=== PATIENT | female | born 1985 | race Caucasian/White ===

== ENCOUNTER 2016-12-22 17:21 | Emergency (ER) | payer MEDICAID ==
[~2016-12-22] VITALS: Ht 154.9 cm; Wt 45.5 kg
[~2016-12-22 17:21] MED LIST: ALPR.5 PO; IBUP800T23 PO; MULT-120 PO
[2016-12-22 17:25] VITALS: BP 104/70; PULSE 87; RESP 16; TEMP 98.8; O2SAT 98
[2016-12-22] MEDS ORDERED: ALPR.5 PO (17:38)
[2016-12-22] MEDS ORDERED: ONDANSETRON ODT 4 MG TAB PO ONE (18:00)
[2016-12-22] MEDS ORDERED: LOPERAMIDE HCL 2 MG CAP PO ONE (18:00)
[2016-12-22] MEDS ORDERED: LOPE2TAB3 PO (18:32)
[2016-12-22] MEDS ORDERED: ZOFR4TAB3 SL (18:32)
--- NOTE | 2016-12-22 18:32 | PD ---
HPI Chief Complaint: GI Complaint Time Seen by Provider: 17:34 Travel History International Travel<30 days: No Contact w/Intl Traveler<30days: No Traveled to known affect area: No History of Present Illness HPI 31-year-old woman presents emergent department complaining of nausea vomiting diarrhea starting last night. She had copious vomiting, food like emesis, no blood, overnight associated with copious watery diarrhea. Last had vomiting this morning about 6:30. She felt nauseous and wiped out throughout the day and feels dehydrated. She had one more episode of diarrhea this afternoon about 4. She came in today she still feeling poorly. No abdominal pain. No fevers or chills. No other complaints. History Past Medical History Medical History: Denies Significant Hx Tetanus Vaccination: < 5 Years Influenza Vaccination: No LMP: "NOW" : 4 Para: 2 Social History Alcohol Use: No Tobacco Use: Yes (1 PPD) Allergies-Medications (Allergen,Severity, Reaction): Coded Allergies: Lidocaine (Verified Allergy, Severe, 12/22/16) Penicillin (Verified Allergy, Severe, Anaphylaxis, 12/22/16) Reported Meds & Prescriptions Reported Meds & Active Scripts Active Reported Xanax (Alprazolam) 0.5 Mg Tab 0.5 Mg PO HS PRN Review of Systems Except as stated in HPI: all other systems reviewed are Neg Physical Exam Narrative GENERAL: Well-appearing 31-year-old woman, no acute distress. SKIN: Warm and dry. HEAD: Atraumatic. Normocephalic. EYES: Pupils equal and round. No scleral icterus. No injection or drainage. ENT: No nasal bleeding or discharge. Mucous membranes pink and moist. NECK: Trachea midline. No JVD. CARDIOVASCULAR: Regular rate and rhythm. No murmur appreciated. RESPIRATORY: No accessory muscle use. Clear to auscultation. Breath sounds equal bilaterally. GASTROINTESTINAL: Abdomen soft, non-tender, nondistended. Hepatic and splenic margins not palpable. MUSCULOSKELETAL: No obvious deformities. No clubbing. No cyanosis. No edema. NEUROLOGICAL: Awake and alert. No obvious cranial nerve deficits. Motor grossly within normal limits. Normal speech. PSYCHIATRIC: Appropriate mood and affect; insight and judgment normal. Data Data Last Documented VS Vital Signs Date Time Temp Pulse Resp B/P Pulse Ox O2 Delivery O2 Flow Rate FiO2 12/22/16 17:25 98.8 87 16 104/70 98 Orders Loperamide (Imodium) (12/22/16 18:00) Ondansetron Odt (Zofran Odt) (12/22/16 18:00) [facility] Medical Decision Making Medical Screen Exam Complete: Yes Emergency Medical Condition: Yes Differential Diagnosis Gastroenteritis, appendicitis, cystitis, enteritis, other Narrative Course Medical decision making INITIAL: 31-year-old woman presents to the emergency department with nausea vomiting copious watery diarrhea. Looks well. No belly pain. Benign abdominal exam. Recommend supportive treatment. Diagnosis Primary Impression: Acute gastroenteritis Additional Instructions: Follow-up with your primary doctor for not completely well in 3-4 days. Return to the emergency department for any new or worsening symptoms. Take Zofran if needed for nausea or vomiting, loperamide as needed for diarrhea. Med/Other Pt SpecificInfo: Prescription(s) given Scripts Loperamide 2 Mg Tab2 Mg PO DIRECTED PRN (DIARRHEA) #8 TAB One tablet after each loose stool. Not to exceed 8 tablets per day. Prov:Osito Aguilera MD 12/22/16 Ondansetron Odt (Zofran Odt)4 Mg Tab4 Mg SL Q8HR PRN (Nausea/Vomiting) #15 TAB May substitute non-ODT form. Prov:Osito Aguilera MD 12/22/16 Disposition: 01 DISCHARGE HOME Condition: Stable Osito Aguilera MD Dec 22, 2016 18:32
[2016-12-22 18:57] VITALS: BP 114/72
== END 2016-12-22 18:58 | disposition home or self-care (01) ==
LOC: PHED 17:21
DX: K52.9 Noninfective gastroenteritis and colitis, unspecified (principal); F17.210 Nicotine dependence, cigarettes, uncomplicated
CPT/HCPCS: 99283